=== PATIENT | male | born 1970 | race Caucasian/White ===

== ENCOUNTER 2018-12-10 03:19 | Emergency (ER) | payer OTHER ==
[~2018-12-10] VITALS: Ht 167.6 cm; Wt 88.5 kg
[2018-12-10] MEDS ORDERED: NKM (03:39)
[2018-12-10 03:45] VITALS: BP 194/124
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
[2018-12-10] MEDS ORDERED: Ketorolac 60mg Inj IM ONE (04:00)
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
--- NOTE | 2018-12-10 04:20 | NUR ---
ED Nurse Note: patient went down for Xray
[2018-12-10] MEDS ORDERED: ROBAXIN-750750 MG PO (04:38)
[2018-12-10] MEDS ORDERED: IBUPROFEN600 MG ORAL (04:38)
--- NOTE | 2018-12-10 04:42 | NUR ---
ED Nurse Note: patient is back, no acute disstress noticed.
[2018-12-10 04:43] VITALS: BP 194/124
[2018-12-10] MEDS ORDERED: ATENOLOL25 MG ORAL (04:43)
--- NOTE | 2018-12-10 04:44 | NUR ---
ED Nurse Note: Pt cleared by health care Provider for discharge. DC instructions/prescription was given and explained to pt and verbalized understanding of teachings. All medical deviecs such as ID band removed. Pt is AAO x4, ambulatory and left with all personal belongings.
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
== END 2018-12-10 04:48 | disposition home or self-care (01) ==
LOC: EMR 03:36
DX: M54.5 Low back pain (principal); V43.52XA Car driver injured in collision with other type car in traffic accident, initial encounter; Y92.410 Unspecified street and highway as the place of occurrence of the external cause; I10 Essential (primary) hypertension; Z88.1 Allergy status to other antibiotic agents
CPT/HCPCS: 72110; 96372; 99283

== ENCOUNTER 2018-12-28 15:02 | Emergency (ER) | payer OTHER ==
[~2018-12-28] VITALS: Ht 170.2 cm; Wt 88.5 kg
[~2018-12-28 15:02] MED LIST: ATENOLOL25 MG ORAL; IBUPROFEN600 MG ORAL; NKM; ROBAXIN-750750 MG PO
--- NOTE | 2018-12-28 15:06 | NUR ---
ED Nurse Note: Pt stated he has to go pay the parking meter at this time.
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
[2018-12-28 15:18] VITALS: BP 180/108
[2018-12-28] MEDS ORDERED: Atenolol 25mg tab ORAL ONE (15:45)
[2018-12-28 16:00] VITALS: BP 157/96
--- NOTE | 2018-12-28 16:01 | NUR ---
ER DISCHARGE NOTE: Patient is cleared to be discharged per ERMD, pt is aox4, on room air, with stable vital signs. pt was given dc and prescription instructions, pt was able to verbalize understanding, pt id band removed without complications. pt is able to ambulate with steady gait. pt took all belongings.
--- NOTE | 2018-12-28 18:35 | Emergency Room Report ---
History of Present Illness General Chief Complaint: Hypertension Source: Patient Present Illness HPI Patient present with complaints of high blood pressure Patient was seen by his chiropractor Was told that his blood pressure was elevated Patient is asymptomatic however was referred to the emergency room for further evaluation Patient reports that he has a history of underlying hypertension He was prescribed medication from previous and has not been taking his medication Currently denies any chest pain denies any shortness of breath denies any headache denies any visual changes or lightheadedness denies any other symptomatically complaints Allergies: Coded Allergies: BACITRACIN (Verified Allergy, Unknown, 12/10/18) NEOMYCIN (Verified Allergy, Unknown, 12/10/18) POLYMYXIN B (Verified Allergy, Unknown, 12/10/18) Patient History Past Medical History: see triage record Pertinent Family History: none Reviewed Nursing Documentation: PMH: Agreed; PSxH: Agreed Nursing Documentation-PMH Past Medical History: No History, Except For Hx Hypertension: Yes Review of Systems All Other Systems: negative except mentioned in HPI Physical Exam Vital Signs Date Time Temp Pulse Resp B/P (MAP) Pulse Ox O2 Delivery O2 Flow Rate FiO2 12/28/18 15:08 98.2 89 20 192/111 98 Room Air 12/28/18 15:18 100 Sp02 EP Interpretation: reviewed, normal General Appearance: well appearing, no apparent distress Head: normocephalic, atraumatic Eyes: bilateral eye PERRL, bilateral eye EOMI ENT: hearing grossly normal, normal pharynx, TMs + canals normal, uvula midline Neck: full range of motion, supple, no meningismus, no bony tend Respiratory: lungs clear, normal breath sounds, no rhonchi, no respiratory distress, no retraction, no accessory muscle use Cardiovascular #1: normal peripheral pulses, regular rate, rhythm, no edema, no gallop, no JVD, no murmur Gastrointestinal: normal bowel sounds, non tender, soft, no mass, no organomegaly, non-distended, no guarding, no hernia, no pulsatile mass, no rebound Genitourinary: no CVA tenderness Musculoskeletal: normal inspection Neurologic: oriented x3, responsive, ict teacher III-XII nml as tested, motor strength/ tone normal, sensory intact Psychiatric: mood/affect normal Skin: normal color, no rash, warm/dry, palpation normal Lymphatic: normal inspection, no adenopathy Medical Decision Making Diagnostic Impression: Primary Impression: Hypertension ER Course Patient has known underlying history of hypertension Is noncompliant with medications At this time does not have any other complaints is asymptomatic otherwise I discussed with him the need for close outpatient primary care follow-up Given the lack of any other discomfort further workup and imaging is not warranted Patient also has not filled his medications from previous presentation Last Vital Signs Date Time Temp Pulse Resp B/P (MAP) Pulse Ox O2 Delivery O2 Flow Rate FiO2 12/28/18 16:00 98.2 83 23 157/96 100 Room Air 100 Status: improved Disposition: HOME, SELF-CARE Condition: Improved Referrals: NON PHYSICIAN (PCP) [place] [facility] Evenings and Weekends: Dial the 24 hour, toll-free medical advice line for enrolled veterans at If youre having a medical emergency, please call 911 or call the [place] Crisis Line at , then press 1. Patient Instructions: Hypertension, [id number], Managing Your High Blood Pressure Additional Instructions: Patient is provided with the discharge instructions notified to follow up with primary doctor in the next 2-3 days otherwise return to the er with any worsening symptoms. Please note that this report is being documented using [employer] technology. This can lead to erroneous entry secondary to incorrect interpretation by the dictating instrument. Francisca Campbell DO Dec 28, 2018 18:35
== END 2018-12-28 16:02 | disposition home or self-care (01) ==
LOC: EMR 15:44
DX: I10 Essential (primary) hypertension (principal); Z88.8 Allergy status to other drugs, medicaments and biological substances
CPT/HCPCS: 99282